=== PATIENT | male | born 1990 | race Caucasian/White ===

== ENCOUNTER 2018-07-02 17:36 | Emergency (ER) | payer OTHER ==
[2018-07-02 17:49] VITALS: BP 143/90
--- NOTE | 2018-07-02 18:24 | UC ---
Shortness of Breath HPI - HPI Summary HPI Summary: 28-year-old male comes to clinic today with a chief complaint of shortness of breath. He's been getting short of breath intermittently for a week or longer. The last couple of days it's been worse. He does have a history of anxiety but he states he doesn't believe he has anything to be anxious about. His father from lung cancer at age 53. Patient is not a smoker. No fevers or chills. Does have a little bit of postnasal drip. Denies any chest pain or wheezing. No edema no recent travel. No history of blood clots. No recent upper respiratory tract infections. Patient relates that this morning he noticed he did not have shortness of breath and then shortly thereafter the shortness of breath returned. He also went for a walk today to see if that made the shortness of breath worse and the shortness of breath went away. - History of Current Complaint Chief Complaint: UCGeneralIllness Stated Complaint: CHEST COMPLAINT Time Seen by Provider: 07/02/18 17:57 - Allergy/Home Medications Allergies/Adverse Reactions: Allergies Allergy/AdvReac Type Severity Reaction Status Date / Time No Known Allergies Allergy Verified 07/02/18 17:49 Home Medications: Home Medications NK [No Home Medications Reported] 07/02/18 [History Confirmed 07/02/18] PMH/Surg Hx/FS Hx/Imm Hx Previously Healthy: Yes - Surgical History Surgical History: Yes Surgery Procedure, Year, and Place: right arm - fx - Family History Known Family History: Negative: Cardiac Disease Family History: FATHER FROM LUNG CANCER AT AGE 53 YEARS. UNDETERMINED CAUSE OF LUNG CANCER. - Social History Alcohol Use: Occasionally Substance Use Type: Marijuana Smoking Status (MU): Never Smoked Tobacco Review of Systems All Other Systems Reviewed And Are Negative: Yes Constitutional: Positive: Negative Skin: Positive: Negative Eyes: Positive: Negative ENT: Positive: Negative Respiratory: Positive: Shortness Of Breath Cardiovascular: Positive: Negative Gastrointestinal: Positive: Negative Genitourinary: Positive: Negative Motor: Positive: Negative Neurovascular: Positive: Negative Musculoskeletal: Positive: Negative Neurological: Positive: Negative Psychological: Positive: Negative Is Patient Immunocompromised?: No Physical Exam Triage Information Reviewed: Yes Appearance: Well-Appearing, No Pain Distress, Well-Nourished Vital Signs: Initial Vital Signs Temp 98.2 F 07/02/18 17:43 Pulse 75 07/02/18 17:43 Resp 15 07/02/18 17:43 BP 143/90 07/02/18 17:43 Pulse Ox 98 07/02/18 17:43 Vital Signs Reviewed: Yes Eye Exam: Normal Eyes: Positive: Conjunctiva Clear ENT: Positive: Pharynx normal, TMs normal. Negative: Pharyngeal erythema, Nasal drainage Neck exam: Normal Neck: Positive: Supple Respiratory: Positive: Lungs clear, Normal breath sounds, No respiratory distress, No accessory muscle use Cardiovascular Exam: Normal Cardiovascular: Positive: RRR Musculoskeletal Exam: Normal Musculoskeletal: Positive: Strength Intact, ROM Intact, No Edema, Other: - NO CALF TENDERNESS Neurological Exam: Normal Neurological: Positive: Alert, Muscle Tone Normal Psychological Exam: Normal Psychological: Positive: Normal Response To Family, Age Appropriate Behavior Skin Exam: Normal Diagnostics - EKG Cardiac Rate: NL - AT 18:25 Cardiac Rhythm: Sinus: Normal Ectopy: None ST Segment: Normal Shortness of Breath Dx - Course Course Of Treatment: Order Information: CHEST PA LAT 2 VWS. Accession Number: [id number]. CPT: 06531. INDICATION: 4 days of shortness of breath. COMPARISON: None. TECHNIQUE: PA and lateral views of the chest were obtained. FINDINGS: The heart and mediastinum are normal in size and contour. The lungs are grossly clear. There is no evidence of large pleural effusion. Visualized bones are normal for the patient's age. There is no radiographic evidence of free air beneath the diaphragm. IMPRESSION: No radiographic evidence of acute cardiopulmonary disease. . <Electronically signed by Apolinar Phipps MD in OV> 07/02/18 1842. I discussed the chest x-ray results and EKG results with the patient and his mother. CBC CMP BNP TSH magnesium and CRP are pending. Patient has a follow- up in 2 days on July 04, 2018 with his primary care doctor. We discussed that here in clinic we cannot check a troponin or a d-dimer. I discussed going to the emergency Department to get those checked. At this time clinically the patient does not have pericarditis or pulmonary embolus. At this time the patient would prefer to follow-up his primary care doctor in 2 days however we discussed if he felt worse he should go directly to the emergency department. - Differential Dx/Diagnosis Provider Diagnosis: Shortness of breath Discharge - Sign-Out/Discharge Documenting (check all that apply): Patient Departure All imaging exams completed and their final reports reviewed: No - Discharge Plan Condition: Stable Disposition: HOME Patient Education Materials: Shortness of Breath (ED) Referrals: Milo Lopez MD [Medical Doctor] - Additional Instructions: FOLLOW UP WITH YOUR DOCTOR SCHEDULED ON 07/04/18. GO TO THE EMERGENCY DEPARTMENT FOR ANY WORSENING OF YOUR CONDITION; CHEST PAIN, SHORTNESS OF BREATH, YOU FEEL ILL OR QUESTIONS OR CONCERNS. - Billing Disposition and Condition Condition: STABLE Disposition: Home
--- NOTE | 2018-07-03 08:48 | UC ---
- Progress Note Progress Note: RADIOLOGY REPORT REVIEWED. CXR UNREMARKABLE. NO CHANGE IN MGMT. Course/Dx - Diagnoses Provider Diagnoses: Shortness of breath Discharge - Sign-Out/Discharge Documenting (check all that apply): Post-Discharge Follow Up All imaging exams completed and their final reports reviewed: Yes - Discharge Plan Condition: Stable Disposition: HOME Patient Education Materials: Shortness of Breath (ED) Referrals: Milo Lopez MD [Medical Doctor] - Additional Instructions: FOLLOW UP WITH YOUR DOCTOR SCHEDULED ON 07/04/18. GO TO THE EMERGENCY DEPARTMENT FOR ANY WORSENING OF YOUR CONDITION; CHEST PAIN, SHORTNESS OF BREATH, YOU FEEL ILL OR QUESTIONS OR CONCERNS. - Billing Disposition and Condition Condition: STABLE Disposition: Home
[2018-07-03 10:23] LABS: ABS Basophils 0 10^3/ul (0-0.2); ABS Eosinophils 0.1 10^3/ul (0-0.6); ABS Lymphocytes 1.4 10^3/ul (1.0-4.8); ABS Monocytes 0.7 10^3/ul (0-0.8); ABS Neutrophils 6.8 10^3/ul (1.5-7.7); ABS Nucleated RBC 0 10^3/ul; Eosinophil % 0.9 %; Hematocrit 48 % (42-52); Hemoglobin 16.2 g/dl (14.0-18.0); Lymphocyte % 15.8 %; Mean Corpuscular HGB Conc 34 g/dl (31-36); Mean Corpuscular Hemoglobin 29 pg (27-31); Mean Corpuscular Volume 86 fL (80-94); Mean Platelet Volume 8.2 fL (7.4-10.4); Nucleated Red Blood Cells % 0; Platelet Count 299 10^3/ul (150-450); Red Blood Count 5.57 10^6/ul (4.00-5.40); Red Cell Distribution Width 13 % (10.5-15)
[2018-07-03 10:44] LABS: Albumin/Globulin Ratio 2.1 (1-3); BUN/Creatinine Ratio 12.9 (8-20); C Reactive Protein 2.1 mg/L (<8.01); Calcium 9.7 mg/dL (8.6-10.3); EGFR Non-African American 89.3 (>60); Globulin 2.4 g/dL (2-4); Magnesium 2.2 mg/dL (1.9-2.7); Potassium 3.9 mmol/L (3.5-5.0); Total Bilirubin 0.5 mg/dL (0.2-1.0); Total Protein 7.4 g/dL (6.4-8.9)
[2018-07-03 10:50] LABS: TSH (Thyroid Stimulating Horm) 3.75 mcIU/mL (0.34-5.60)
== END 2018-07-02 19:23 | disposition home or self-care (01) ==
LOC: UCEAST 17:36
DX: R06.02 Shortness of breath (principal)
CPT/HCPCS: 36415; 71046; 80053; 83735; 83880; 84443; 85025; 86140; 93005; 99201; G0463